=== PATIENT | female | born 1965 | race Caucasian/White ===

== ENCOUNTER → 2016-09-10 | Outpatient (CLI) | payer BC ==
[2013-09-04 18:12] VITALS: BP 99/59
[~2016-09-10] MED LIST: DILAUDID 2MG TAB2 MG PO; KETOROLAC10 MG PO; METFORMIN500 MG PO; ZOFRAN4 M1 PO
== END ==
LOC: LAB 16:17
DX: R73.02 Impaired glucose tolerance (oral) (principal); M25.551 Pain in right hip; E78.2 Mixed hyperlipidemia; I89.0 Lymphedema, not elsewhere classified; M62.838 Other muscle spasm

== ENCOUNTER → 2016-09-19 | Outpatient (CLI) | payer BC ==
[2013-09-04 18:12] VITALS: BP 99/59
== END ==
LOC: MAMMO 09:16
DX: Z12.31 Encounter for screening mammogram for malignant neoplasm of breast (principal)
CPT/HCPCS: G0202

== ENCOUNTER → 2021-04-10 | Outpatient (CLI) | payer BC ==
[2021-04-10 16:24] LABS: BASO # 0.05 K/mm3 (0.02-0.10); EOS # 0.35 K/mm3 (0.04-0.40); EOS % 2.5 % (1.0-5.0); HEMATOCRIT 44.4 % (37.0-47.0); HEMOGLOBIN 14.4 g/dL (12.5-16.0); LYMPH# 4.73 K/mm3 (1.50-4.00); MEAN CELL VOLUME 85 fl (78-100); MEAN CORPUSCULAR HEMOGLOBIN 28 pg (27-31); MEAN CORPUSCULAR HGB CONC 32 g/dL (33-37); MEAN PLATELET VOLUME 9.1 fl (7.4-10.4); MONO # 0.89 K/mm3 (0.20-0.80); NEU # 8.07 K/mm3 (1.40-6.50); PLATELET COUNT 387 K/mm3 (130-400); RED BLOOD COUNT 5.23 M/mm3 (4.10-5.30); WHITE BLOOD COUNT 14.1 K/mm3 (4.8-10.8)
[2021-04-10 16:37] LABS: ALBUMIN 4.6 g/dL (3.5-5.0); POTASSIUM 4.3 mmol/L (3.5-5.1)
[2021-04-10 16:38] LABS: CALCIUM 9.4 mg/dL (8.3-10.5)
[2021-04-10 16:39] LABS: TOTAL PROTEIN 7.3 g/dL (6.4-8.3)
[2021-04-10 16:41] LABS: TOTAL BILIRUBIN 0.3 mg/dL (0.2-1.2)
[2021-04-10 17:37] LABS: ERYTHROCYTE SEDIMENTATION RATE 1 mm/hr (0-30)
== END ==
LOC: LAB 16:06
PROVIDERS: Internal Medicine
DX: Z00.00 Encounter for general adult medical examination without abnormal findings (principal); Z12.11 Encounter for screening for malignant neoplasm of colon

== ENCOUNTER → 2021-04-12 | Outpatient (CLI) | payer BC | LOC: RAD 16:46 | DX: R51.9 Headache, unspecified (principal) | CPT/HCPCS: A9585 ==